=== PATIENT | male | born 1950 ===

== ENCOUNTER → 2022-02-23 14:11 | Outpatient (BNVA) | payer MEDICARE, BC, SELFPAY | PROVIDERS: Family Provider Family Medicine; Visit Provider Nurse Practitioner Family | DX: N40.1 Benign prostatic hyperplasia with lower urinary tract symptoms (principal); N13.8 Other obstructive and reflux uropathy; N41.9 Inflammatory disease of prostate, unspecified; R30.0 Dysuria | CPT/HCPCS: 51741; 51798; 81003; 99213 ==

== ENCOUNTER → 2022-04-01 10:10 | Outpatient (BNVA) | payer MEDICARE, BC, SELFPAY | PROVIDERS: Family Provider Family Medicine; Visit Provider Urology | DX: N40.1 Benign prostatic hyperplasia with lower urinary tract symptoms (principal); N13.8 Other obstructive and reflux uropathy; N41.9 Inflammatory disease of prostate, unspecified; Z80.42 Family history of malignant neoplasm of prostate | CPT/HCPCS: 51798; 99213; G0103 ==

== ENCOUNTER 2023-03-06 10:31 | Emergency (ER) | payer MEDICARE, BC, SELFPAY ==
--- NOTE | 2023-03-06 10:39 | CTR_ITS ---
PROCEDURE INFORMATION: Exam: CT Head Without Contrast Exam date and time: 03/06/2023 11:05 AM Age: 72 years old Clinical indication: Injury or trauma; Blunt trauma (contusions or hematomas); With loss of consciousness; Loss of consciousness for 30 minutes or less; Injury details: Fall x 3 days ago. Since PT has had dizziness and SOB; Additional info: Closed head injury TECHNIQUE: Imaging protocol: Computed tomography of the head without contrast. Radiation optimization: All CT scans at this facility use at least one of these dose optimization techniques: automated exposure control; mA and/or kV adjustment per patient size (includes targeted exams where dose is matched to clinical indication); or iterative reconstruction. REPORTING DATA: Count of CT and Cardiac NM exams in prior 12 months: This patient has received 0 known CTs and 0 known cardiac nuclear medicine studies in the 12 months prior to the current study. COMPARISON: No relevant prior studies available. RADIATION DOSE METRICS: Total DLP (mGy-cm): 1165.06 FINDINGS: Brain: Diffuse cerebral atrophy, consistent with patient's age. No hemorrhage. Preserved alfonso-white matter differentiation. Mild patchy cerebral white matter hypoattenuation likely on the basis of chronic microvascular ischemic change. No mass effect. Intracranial vascular calcifications. Cerebral ventricles: Ventricles are in proportion to the degree of atrophy. Paranasal sinuses: Single opacified left ethmoid air cell. Mastoid air cells: Visualized mastoid air cells are well aerated. Bones/joints: No acute fracture. Moderate bilateral TMJ degenerative changes. Soft tissues: 3.2 x 1.1 cm right scalp hematoma. CT/CT head wo con* [id number] IMPRESSION: 1. No acute intracranial findings. 2. 3.2 cm right scalp hematoma.
--- NOTE | 2023-03-06 10:40 | XR_ITS ---
WS: [id number] Exam: XR chest 1V portable [id number] Date/Time of Exam: 03/06/2023 10:47 AM Reason For Exam: chest pain Findings: The lungs are clear and fully expanded. Costophrenic angles are sharp. No infiltrates. Bronchovascula r relief appears normal. Cardiac silhouette is unremarkable. Bony elements are intact. XR/XR chest 1V portable [id number] IMPRESSION: Unremarkable chest radiograph.
[2023-03-06 10:47] VITALS: BMI 25.7
[2023-03-06 10:51] VITALS: BP 161/90; PULSE 83; RESP 18; TEMP 36.7; O2SAT 95
--- NOTE | 2023-03-06 11:00 | ECG_ITS ---
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 Measurements Intervals Bruner Rate: 81 P: 29 MN: 158 QRS: 6 QRSD: 84 T: 42 QT: 355 QTc: 412 Interpretive Statements SINUS RHYTHM MINIMAL VOLTAGE CRITERIA FOR LVH, CONSIDER NORMAL VARIANT [MEETS CRITERIA IN ONE OF: R(aVL), S(V1), R(V5), R(V5/V6)+S(V1)] No previous ECG available for comparison Electronically Signed On 03-06-2023 21:38:11 CDT by Zhang Saldana M.D. [email or web address].[email or web address] [email or web address] Minutes/store/OM/[id number]
--- NOTE | 2023-03-06 11:33 | W.ED.SYNCOPE ---
HPI - Syncope General: Chief Complaint: Syncope Stated Complaint: fell/hit head/tight chest/SOB/lightheaded/fatigue Time Seen by Provider: 03/06/23 10:35 Source: patient Mode of arrival: ambulatory History of Present Illness: 72-year-old male presents emergency room for complaint of a fall chest pain shortness of breath lightheadedness and fatigue. He said 2 days ago he woke up in bed he had a knot on right occipital area he thought he had fallen somewhere in the house but had gotten back to bed he says he does not recall any of thing happening. He reports slight balance issues and chest pain since this happened. Patient is a diabetic he is on metformin and Januvia no recent medication changes. No previous similar episodes no recurrence since the episode 2 days ago. Onset (ago): day(s) (2) Prodromal symptoms: none Witnessed: No Associated symptoms: Reports chest pain; Deny abdominal pain, fever(s), headache(s), lightheadedness, nausea, short of breath, vertigo or weakness Treatments prior to arrival: none Review of Systems Const: Reports: fatigue; Denies: fever(s), chills or malaise ENMT: Denies: throat pain, ear or mastoid pain, nasal discharge or nasal congestion Card: Reports: chest pain; Denies: lightheadedness Resp: Denies: dyspnea, productive cough or non-productive cough GI: Denies: abdominal pain or nausea : Denies: flank pain, dysuria, urinary frequency or urinary urgency Skin/Breast: Denies: rash or pruritus Neuro: Denies: headache(s) or vertigo PFSH ED PFSH: Medical History BPH w urinary obs/LUTS Diabetes Dysuria Hyperlipemia Hypertension Surgical History History of hand surgery Family History Father , AT 87 Cancer LUNG Mother , AT 87, HEMMORAGE No problems noted. Social History Smoking and tobacco status: never smoked Alcohol intake: current Alcohol intake frequency: 0-2 Drinks per Day Substance/Drug Use: never Marital status: / Current occupational status: retired Physical Exam Const: GENERAL APPEARANCE: cooperative and comfortable ORIENTATION/CONSCIOUSNESS: Yes awake, Yes oriented to person, Yes oriented to place and Yes oriented to time HENMT: COMMON NORMALS: normocephalic and hearing grossly normal bilaterally HEAD & SCALP: normocephalic OTHER: Palpable hematoma right superior occiput no laceration no active bleeding no dried eschar Resp: COMMON NORMALS: normal respiratory effort, No retractions, No use of accessory muscles and clear to auscultation bilaterally AUSCULTATION: clear to auscultation bilaterally Cardio: COMMON NORMALS: regular rate, regular rhythm and No murmurs present (Cardio) RATE: regular rate RHYTHM: regular rhythm GI: COMMON NORMALS: Soft to palpation and No hepatosplenomegaly present AUSCULTATION: Yes normoactive bowel sounds PALPATION: Yes Soft to palpation, No Tenderness to palpation present (GI), No Guarding due to palpation present (GI) and Yes No hepatosplenomegaly present Extremity: COMMON NORMALS: normal to inspection, capillary refill normal, no clubbing, cyanosis or edema, no calf tenderness and no pedal edema Neuro: SENSORIUM/ORIENTATION: Yes oriented to person, Yes oriented to place and Yes oriented to time Skin: COMMON NORMALS: no rashes or lesions noted GENERAL SKIN EXAM: no rashes or lesions noted Course Vital Signs: Vital signs: Vital Signs Temperature 98.1 F 03/06/23 10:51 Pulse Rate 76 03/06/23 13:37 Respiratory Rate 18 03/06/23 10:51 Blood Pressure 153/97 03/06/23 13:37 Pulse Oximetry 96 03/06/23 13:37 Oxygen Delivery Me thod Room Air 03/06/23 12:34 MDM - Syncope Medical Decision Making Syncopal episode [address] head negative will discharge home with Holter monitor and echocardiogram as an outpatient follow-up with primary care no change in medications at this time return if is worsening problems or recurrence. Medical Records I reviewed the patient's medical records. Lab Data I reviewed the patient's lab results. 03/06/23 11:47 03/06/23 11:[address] 03/06/23 10:39 IMPRESSION: 1. No acute intracranial findings. 2. 3.2 cm right scalp hematoma. Chest X-Ray 03/06/23 10:40 IMPRESSION: Unremarkable chest radiograph. Laboratory Results WBC 4.8 10^3/uL (4.0-10.0) 03/06/23 11:47 RBC 4.25 10^6/uL (4.1-5.3) 03/06/23 11:47 Hgb 13.2 g/dL (11.7-16.6) 03/06/23 11:47 Hct 40.9 % (42.0-52.0) L 03/06/23 11:47 MCV 96.2 fl (80-94) H 03/06/23 11:47 MCH 31.1 pg (28.0-34.0) 03/06/23 11:47 MCHC 32.3 g/dL (30.0-36.0) 03/06/23 11:47 RDW 12.3 % (12.1-15.1) 03/06/23 11:47 Plt Count 160 10^3/cmm (130-400) 03/06/23 11:47 MPV 12.0 fL (7.4-10.4) H 03/06/23 11:47 Neut % (Auto) 59.6 % 03/06/23 11:47 Lymph % (Auto) 29.2 % 03/06/23 11:47 Duval % (Auto) 7.1 % 03/06/23 11:47 Eos % (Auto) 2.9 % 03/06/23 11:47 Baso % (Auto) 1.0 % 03/06/23 11:47 Neut # (Auto) 2.85 10^3/uL (1.8-7.7) 03/06/23 11:47 Lymph # (Auto) 1.4 10^3/uL (0.8-4.8) 03/06/23 11:47 Duval # (Auto) 0.3 10^3/uL (0.2-0.9) 03/06/23 11:47 Eos # (Auto) 0.1 10^3/uL (0.0-0.8) 03/06/23 11:47 Baso # (Auto) 0.1 10^3/uL (0.0-0.1) 03/06/23 11:47 Nucleated RBC % (auto) 0 % 03/06/23 11:47 Nucleated RBCs # 0.0 /100WBC 03/06/23 11:47 Sodium 135 mmol/L (136-145) L 03/06/23 11:47 Potassium 5.4 mmol/L (3.5-5.1) H 03/06/23 11:47 Chloride 102 mmol/L (98-107) 03/06/23 11:47 Carbon Dioxide 19 mmol/L (22-29) L 03/06/23 11:47 Anion Gap 19.4 (5-19) H 03/06/23 11:47 BUN 22 mg/dL (8-23) 03/06/23 11:47 Creatinine 1.1 mg/dL (0.7-1.2) 03/06/23 11:47 GFR Calculation Not Reportable 03/06/23 11:47 Glucose 183 mg/dL (65-115) H 03/06/23 11:47 Calculated Osmolality 288 mOsm/kg (285-295) 03/06/23 11:47 Calcium 9.3 mg/dL (8.5-10.5) 03/06/23 11:47 Total Bilirubin 0.5 mg/dL (0.15-1.2) 03/06/23 11:47 AST 21 U/L (0-40) 03/06/23 11:47 ALT 31 U/L (0-41) 03/06/23 11:47 Alkaline Phosphatase 65 U/L (40-130) 03/06/23 11:47 Troponin T Baseline 7 ng/L (0-15) 03/06/23 11:47 Total Protein 6.7 g/dL (6.6-8.7) 03/06/23 11:47 Albumin 4.3 g/dL (3.5-5.2) 03/06/23 11:47 Globulin 2.4 g/dL (1.3-4.6) 03/06/23 11:47 Discharge Plan Discharge Patient Disposition: Home Clinical Impression: Syncope Condition: Stable Prescriptions: No Action metformin 500 mg tablet extended release 24 hr 2,000 mg PO QPM atorvastatin 10 mg tablet 10 mg PO QPM escitalopram oxalate 10 mg tablet 10 mg PO QPM lisinopril 40 mg tablet 40 mg PO QPM Januvia 100 mg tablet 100 mg PO QPM cinnamon bark [Cinnamon] 500 mg capsule 500 mg PO BID omega 5-djx-ehf-fish oil [Fish Oil] 60-90-500 mg capsule 1 cap PO BID hwcfqlb-hrjv-cpfiy-oreg-capryl 100 mg-150 mg- 50 mg-150 mg capsule 1 cap PO BID multivitamin Tablet 1 tab PO DAILY Discharge Orders: Discharge ED (Routine); Ordered 03/06/23 Ordered By: Rafael Olsen Referrals: Marcell Mathews MD [Primary Care Provider] - Discharge Diet: Usual diet Discharge Activity: Increase activity as tolerated Patient Instructions: Opioid Safety, Pain Management Activity Restrictions/Additional Instructions: Case management will set up for a 48-hour Holter monitor and echocardiogram to further evaluate the syncopal episode. Follow-up with your primary care doctor after these are completed. Coding Level of Care Code ED Medical Logistics Specialist for Harsh Cardona
[2023-03-06 11:53] LABS: Basophils # 0.1 10^3/uL (0.0-0.1); Eosinophils # 0.1 10^3/uL (0.0-0.8); Eosinophils % 2.9 %; Hematocrit 40.9 % (42.0-52.0); Hemoglobin 13.2 g/dL (11.7-16.6); Lymphocytes # 1.4 10^3/uL (0.8-4.8); Lymphocytes % 29.2 %; Mean Corpuscular HGB Conc 32.3 g/dL (30.0-36.0); Mean Corpuscular Hemoglobin 31.1 pg (28.0-34.0); Mean Corpuscular Volume 96.2 fl (80-94); Monocytes # 0.3 10^3/uL (0.2-0.9); Monocytes % 7.1 %; Neutrophils # 2.85 10^3/uL (1.8-7.7); Neutrophils % 59.6 %; Nucleated Red Blood Cells % 0 %; Platelet Count 160 10^3/cmm (130-400); Red Blood Count 4.25 10^6/uL (4.1-5.3); Red Cell Distribution Width 12.3 % (12.1-15.1); White Blood Count 4.8 10^3/uL (4.0-10.0)
[2023-03-06 12:16] LABS: Troponin(5th) Baseline 7 ng/L (0-15)
[2023-03-06 12:29] LABS: Alanine Aminotransferase 31 U/L (0-41); Albumin Level 4.3 g/dL (3.5-5.2); Alkaline Phosphatase 65 U/L (40-130); Aspartate Amino Transferase 21 U/L (0-40); Blood Urea Nitrogen 22 mg/dL (8-23); Calcium 9.3 mg/dL (8.5-10.5); Carbon Dioxide 19 mmol/L (22-29); Chloride 102 mmol/L (98-107); Globulin 2.4 g/dL (1.3-4.6); Glucose 183 mg/dL (65-115); Osmolality Calculated 288 mOsm/kg (285-295); Sodium 135 mmol/L (136-145); Total Bilirubin 0.5 mg/dL (0.15-1.2); Total Protein 6.7 g/dL (6.6-8.7)
[2023-03-06 12:33] LABS: Anion Gap 19.4 (5-19); Potassium 5.4 mmol/L (3.5-5.1)
[2023-03-06 12:34] VITALS: BP 155/99; PULSE 80; O2SAT 96
--- NOTE | 2023-03-06 12:44 | ECG_ITS ---
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 Measurements Intervals Yoder Rate: 74 P: 25 ND: 163 QRS: 9 QRSD: 81 T: 23 QT: 354 QTc: 394 Interpretive Statements SINUS RHYTHM Compared to ECG 03/06/2023 11:00:28 No significant changes Electronically Signed On 03-06-2023 21:51:20 CDT by Zhang Saldana M.D. [email or web address] medical [email or web address] clinic union hospitalGIGAS/store/OM/[id number]
[2023-03-06 13:37] VITALS: BP 153/97; PULSE 76; O2SAT 96
--- NOTE | 2023-03-07 11:18 | DCPLANNER ---
Addendum entered by Melany Biswas 03/24/23 10:41: Patient did attend echo appointment Patients appointment scheduled with heart care was rescheduled Addendum entered by Melany Biswas 03/14/23 13:52: Patient has an out patient echo scheduled for Monday, March 17, 2023 at 12:15. Patient has a 48 hour halter monitor scheduled for Monday, April 03, 2023 at 9:00 at [facility]. Original Note: mis manager had message to schedule an outpatient echo cardiogram - signed order faxed to centralized scheduling, who will call patient with appointment information. mis manager had message to schedule an outpatient 48 hour halter monitor - signed order faxed to [facility], who will call patient with appointment information.
== END 2023-03-06 13:38 | disposition home or self-care (01) ==
PROVIDERS: Emergency Provider Family Medicine; PCP Family Medicine
DX: R55 Syncope and collapse (principal); Z79.84 Long term (current) use of oral hypoglycemic drugs; E11.9 Type 2 diabetes mellitus without complications; E78.5 Hyperlipidemia, unspecified; I10 Essential (primary) hypertension
CPT/HCPCS: 36415; 70450; 71045; 80053; 84484; 85025; 93005; 99285

== ENCOUNTER 2023-03-17 11:15 | Outpatient (CLI) | payer MEDICARE, BC, SELFPAY ==
--- NOTE | 2023-03-17 11:25 | USCV_ITS ---
Maurizio Schultz Age: 72 Gender: M : 1950 Exam Date: 03/17/2023 12:04 Ordering Phys: Rafael Olsen DO Technologist: YAKELIN Exam Location: [facility] [place] Indication: SYNCOPE BP: 132 / 72 HR: 85 Rhythm: Sinus Technical Quality: Adequate MEASUREMENTS (Male / Female) Normal Values 2D ECHO LVOT Diameter 2.0 cm LV Ejection Fraction MOD 2C 71.1 % LV Ejection Fraction 2C AL 72.4 % LA Diameter 3.1 cm LA Width 3.0 cm LA Height 5.1 cm RA Width 3.5 cm RA Height 4.5 cm Aorta at Sinotubular Diameter 2.4 cm IVC Diameter 1.4 cm M-MODE Aortic Annulus Diameter 2.9 cm LA Ao Ratio MM 1.1 MV E Point Septal Separation 0.5 cm DOPPLER AV Peak Velocity 182.0 cm/s LVOT Peak Velocity 156.0 cm/s AV Area Cont Eq vti 2.8 cm squared AV Area Cont Eq pk 2.7 cm squared MV Peak Velocity 94.0 cm/s MV Area PHT 2.7 cm squared Mitral E to A Ratio 0.8 MV E' Velocity 47.5 cm/s Mitral E to MV E' Ratio 6.8 Mitral E to LV E' Lateral Ratio 5.7 Mitral E to LV E' Septal Ratio 8.4 TR Peak Velocity 163.4 cm/s TR Peak Gradient 10.7 mmHg TR Mean Velocity 136.8 cm/s TR Mean Gradient 7.6 mmHg TR Velocity Time Integral 41.6 cm TV Peak E Velocity 52.0 cm/s Right Atrial Pressure 3.0 mmHg Pulmonary Artery Systolic Pressu 13.7 mmHg PV Peak Velocity 176.0 cm/s RV Acceleration Time 0.1 s RV Ejection Time 0.3 s RV AcT/ET 0.3 FINDINGS Left Ventricle Left ventricle is normal in size. LV systolic function is normal with EF of 55 to 60%. No regional wall motion abnormalities are seen. Grade 1 diastolic dysfunction Right Ventricle Normal in size and function Right Atrium Normal in size Left Atrium Normal in size Mitral Valve Structurally normal mitral valve. Trace mitral regurgitation. Aortic Valve Structurally normal aortic valve. No significant stenosis or regurgitation. Tricuspid Valve Trace tricuspid regurgitation. Insufficient TR jet to calculate RVSP Pulmonic Valve Not well visualized Pericardium Normal Aorta Normal in size IVC Appears to be normal CONCLUSIONS LV systolic function is normal with EF 55 to 60%. Grade 1 diastolic dysfunction Trace mitral regurgitation No comparison studies are available. Cirilo Faust MD (Electronically Signed) Final Date: 17 March 2023 14:27 S
== END 2023-03-17 11:16 | disposition home or self-care (01) ==
PROVIDERS: PCP Family Medicine; Visit Provider Family Medicine
DX: R55 Syncope and collapse (principal); I34.0 Nonrheumatic mitral (valve) insufficiency
CPT/HCPCS: 93306

== ENCOUNTER → 2023-04-03 08:38 | Outpatient (BNVA) | payer MEDICARE, BC, SELFPAY | PROVIDERS: PCP Family Medicine; Visit Provider Internal Medicine Cardiovascular Disease | DX: R55 Syncope and collapse (principal); I49.1 Atrial premature depolarization; I49.3 Ventricular premature depolarization; I47.1 Supraventricular tachycardia; R00.1 Bradycardia, unspecified | CPT/HCPCS: 93225 ==